=== PATIENT | female | born 1965 | race Caucasian/White ===

== ENCOUNTER 2025-04-23 17:44 | Emergency (ER) | payer BC ==
[~2025-04-23] VITALS: Ht 167.6 cm; Wt 90.9 kg
[2025-04-23 18:02] VITALS: TEMP 99.9
--- NOTE | 2025-04-23 18:07 | Physician Documentation ---
History of Present Illness Chief Complaint: Abdominal Pain w/vomiting Stated Complaint: DEHYDRATION Primary Medical Doctor: Sav Prieto [facility] This is a 60-year-old female that reports to the emergency department for evaluation of nausea vomiting fevers chills x5 days. Patient reports that she was seen at her primary care provider's office they were going to establish an IV and rehydrate her but they were unable to establish IV. Her right ear recommended that she come to the emergency department for IV fluids and hydration. Patient denies chest pain other than does report some what feels like reports for the last couple of days. History as above. Patient denies any sick contacts. No diarrhea. She does state she feels like she is having heartburn. Medication Reconciliation Allergies: Coded Allergies: No Known Allergies (Unverified , 06/06/14) Past Medical History Past Medical History: No Pertinent History Past Surgical History: orthopedic surgeries, tubal ligation Other Past Surgical History: Uterine Ablation Lives with: Family Lives In: Home Review of Systems ROS All review of systems negative except as per HPI Physical Exam Vital Signs: Temperature: 99.9, Heart Rate: 72, Respiratory Rate: 17, BP: 168/96, Pulse Oximetry: 97, Weight: 90.910 Oxygen Flow Rate: 0 Physical Exam General: Patient is awake, alert, oriented x4 in no acute distress Head: Normocephalic and atraumatic. Eyes: Conjunctival normal. EOMI. PERRL. ENT: Mucous membranes moist. Neck: Supple, trachea is midline. Chest: Clear to auscultation bilaterally without rales, rhonchi, or wheezes. There is no accessory muscle use or retractions. Cardiac: RRR without murmurs, gallops, or rubs. Abd: Soft, nondistended, nontender, with normoactive bowel sounds. No guarding, rebound, or rigidity. Progress Results/Orders Results/Orders Vital Signs 04/23/25 18:02 Temp 99.9 Pulse 72 Resp 17 B/P (MAP) 168/96 Pulse Ox 97 O2 Flow Rate 0 Medical Decision Making Findings Patient presents to the emergency room with nausea and vomiting. Differentials include but are not limited to dehydration, viral syndrome, acute kidney injury, small-bowel obstruction, electrolyte disturbances therefore emergent labs ordered which were reassuring. Patient was responding to therapy and he had not feel she requires emergent CT scan as I believe the risk of radiation at this juncture outweighs any benefit. She is now tolerating p.o.. Slight elevation of patient's liver enzymes noted however she has a negative Forrest's and he had not feel she requires emergent ultrasound. Departure Disposition: HOME / SELF CARE / HOMELESS Impression: Primary Impression: Acute gastritis Condition: Improved Discharge Instructions: Gastritis, Adult Referrals: NO PRIMARY CARE PROVIDER (PCP) Prescriptions Ondansetron 8mg ODT (Ondansetron Odt) 8 Mg Tab.rapdis 1 TAB PO Q6H for nausea/vomiting for 3 Days, #12 TAB 0 Refills Prov: GERRY RANDALL MD 04/23/25 Education Educated: Patient Educated regarding: diagnosis, treatment, need for follow up Signature Scribe Signature: No scribe Attestation: The note accurately reflects work and decisions made by me.Gerry Randall MD 04/23/25 22:05 JADON MORTENSEN Apr 23, 2025 18:07 GERRY RANDALL MD Apr 23, 2025 19:33
[2025-04-23 18:47] LABS: MEAN PLATELET VOLUME 10.3 FL (7.4-10.4); RED CELL DISTRIBUTION WIDTH 13.0 % (11.5-14.5)
[2025-04-23 18:56] LABS: CREATININE 0.65 MG/DL (0.40-0.90); TOTAL CARBON DIOXIDE 25.6 MMOL/L (24-32); eCRCL 84 ML/MIN; eGFR > 90 ML/MIN
[2025-04-23] MEDS: normal saline 1000ml 1,000 ML IV ONE ×2 (19:26→19:56)
[2025-04-23] MEDS: famotidine/PF 10 mg/ml inj IV ONE (19:56)
[2025-04-23] MEDS: ondansetron/PF 4mg/2ml inj IV ONE ×2 (19:57→20:04)
[2025-04-23 21:28] VITALS: BP 175/83; PULSE 75; RESP 14; O2SAT 96
[2025-04-23 21:40] LABS: URINE HCG NEGATIVE (NEG)
[2025-04-23 21:57] LABS: LEUKOCYTE ESTERASE ,URINE NEGATIVE (Neg); NITRITES, URINE NEGATIVE (Neg); OCCULT BLOOD,URINE NEGATIVE (Neg)
[2025-04-23 21:58] LABS: UA COLLECTION TYPE VOIDED
[2025-04-23] MEDS ORDERED: ONDA-245 PO (22:05)
== END 2025-04-23 22:09 | disposition home or self-care (01) ==
LOC: ER 17:45
DX: K29.00 Acute gastritis without bleeding (principal); E86.0 Dehydration; Z98.51 Tubal ligation status
CPT/HCPCS: 36415; 80053; 81003; 81025; 83690; 84484; 85025; 96361; 96374; 96375; 99284; J2405; J2470; J3490; J7030

== ENCOUNTER 2025-04-27 12:56 | Emergency (ER) | payer BC, OTHER ==
[~2025-04-27] VITALS: Ht 167.6 cm; Wt 89.1 kg
[~2025-04-27 12:56] MED LIST: ONDA-245 PO
[2025-04-27 13:15] VITALS: TEMP 98.7
[2025-04-27] MEDS: normal saline 1000ml 1,000 ML IV ONE (14:55)
--- NOTE | 2025-04-27 15:05 | Physician Documentation ---
History of Present Illness ~ Chief Complaint: Rectal Bleeding Stated Complaint: SHINGLES Time Seen by MD: 14:19 Primary Medical Doctor: Sav Prieto Mode of Arrival: POV HPI Patient is a 60-year-old female that presents to the emergency department for evaluation of rectal bleeding x2 days. Patient reports that she has been ill since last Monday with nausea and vomiting. She was seen at her primary care provider's office on Monday diagnosed with shingles at that time provided with some oral Zofran for the nausea and vomiting. Pain increased patient decided to present to the emergency department Monday night was seen in the emergency department Monday night and discharged to home in stable condition. Reports that nausea stopped at that time since that time she has continued to have abdominal pain and generalized discomfort yesterday she developed rectal bleeding and blood in her stool. Reports that she has had several episodes of gelatinous blood in her underwear that she has had to wipe out and several episodes of just blood in the toilet without stool. Denies any new medications denies taking blood thinners denies any history of diverticulosis colitis Crohn's IBS or any other gastroenterological conditions at this time. Reports he only takes Synthroid for her hypothyroidism and has no other medical conditions. Medication Reconciliation Allergies: Coded Allergies: No Known Allergies (Unverified , 04/27/25) Scheduled Acyclovir* (Zovirax*), 1 TAB PO 5XD Cephalexin*Monohydrate* (Keflex*), 1 CAP PO QID Gabapentin (Gabapentin), 1 CAP PO Q8H Ondansetron 8mg ODT (Ondansetron Odt), 1 TAB PO Q6H Past Medical History Past Medical History: No Pertinent History Past Surgical History: orthopedic surgeries, tubal ligation Other Past Surgical History: Uterine Ablation Lives with: Family Lives In: Home Review of Systems ROS As stated above in the HPI, otherwise all systems are reviewed and negative. Physical Exam Vital Signs: Temperature: 98.7, Source: Temporal, Heart Rate: 84, Respiratory Rate: 16, BP: 170/85, Pulse Oximetry: 97, Weight: 89.100 Oxygen Flow Rate: 0 Physical Exam VITALS: Reviewed and as above. GENERAL: Alert, no apparent distress. HEENT: Normocephalic, atraumatic, PERRL, EOMI, dry mucosa, no erythema RESPIRATORY: Lungs clear, normal breath sounds, no respiratory distress. CHEST: No accessory muscle use, no retractions CV: Regular rate, rhythm, no edema, no murmur, No: JVD GI: Soft, patient was palpation to the lower left and right quadrants, bowels sounds present, no rebound, guarding, or rigidity BACK: No CVA tenderness, or swelling MUSCULOSKELETAL No deformities, no edema SKIN: Warm and dry, no rash NEURO: Oriented x4, No motor or sensory deficit PSYCH: Normal mood and affect, no agitation Progress Progress Note CBC CMP coags type and cross ordered. Hemoccult positive. Labs we will re-evaluate. Patient is currently hemodynamically stable. Results/Orders Results/Orders Orders - JADON MORTENSEN CREDIT PRODUCT ANALYST * Iv Access / Saline Lock * (04/27/25 14:40) Hemocult Set Up (04/27/25 ) Completed Orders - JADON MORTENSEN Cbc/Diff (04/27/25 14:21) CMP (04/27/25 14:21) Normal Saline 1000ml (0.9% Sodium Chlori (04/27/25 14:40) Pt Inr (04/27/25 14:50) PTT (04/27/25 14:50) Type And Screen (04/27/25 14:50) Occult Bld Stool (04/27/25 15:01) Ua W/Microscopic, Cult If Ind (04/27/25 17:10) Medications Received in ER Medications (Trade) Dose Ordered Sig/Maico Route PRN Reason Start Time Stop Time Status Last Admin Dose Admin Sodium Chloride 1,000 ml @ 1,000 mls/hr ONCE ONCE IV 04/27/25 14:40 04/27/25 15:39 DC 04/27/25 14:55 1,000 MLS/HR Vital Signs 04/27/25 04/27/25 04/27/25 13:15 13:43 15:10 Temp 98.7 Pulse 84 74 Resp 16 18 B/P (MAP) 170/85 176/94 (121) Pulse Ox 97 98 O2 Flow Rate 0 0 Laboratory Tests Test 04/27/25 14:52 04/27/25 15:01 04/27/25 17:10 White Blood Count 15.7 H Red Blood Count 5.51 Hemoglobin 17.2 H Hematocrit 49.0 H Mean Corpuscular Volume 88.9 Mean Corpuscular Hemoglobin 31.2 H Mean Corpuscular Hemoglobin Concent 35.1 Red Cell Distribution Width 12.8 Platelet Count 225 Mean Platelet Volume 10.3 Neutrophils (%) (Auto) 66.3 Lymphocytes (%) (Auto) 23.8 Monocytes (%) (Auto) 9.3 Eosinophils (%) (Auto) 0.1 Basophils (%) (Auto) 0.5 Neutrophils # (Auto) 10.4 H Lymphocytes # (Auto) 3.7 Monocytes # (Auto) 1.5 H Eosinophils # (Auto) 0.0 Basophils # (Auto) 0.1 CBC Comment Prothrombin Time 10.9 INR International Normalized Ratio 1.1 Activated Partial Thromboplast Time 23 Coagulation Comments Sodium Level 133 L Potassium Level 3.5 Chloride Level 95 L Carbon Dioxide Level 26.1 Anion Gap 12 Blood Urea Nitrogen 15 Creatinine 1.13 H Estimated GFR/1.73 m2 49 BUN/Creatinine Ratio 13.3 Glucose Level 108 H Calcium Level 9.4 Total Bilirubin 1.1 H Aspartate Amino Transf (AST/SGOT) 85 H Alanine Aminotransferase (ALT/SGPT) 149 H Alkaline Phosphatase 86 Total Protein 8.8 H Albumin 4.2 Globulin 4.6 H Albumin/Globulin Ratio 0.9 L Chemistry Comments Stool Occult Blood Positive H Urine Specimen Description Cln catch midstream Urine Color Yellow Urine Clarity Slightly cloudy Urine pH 5.5 Urine Specific Worth >=1.030 Urine Protein Negative Urine Glucose (UA) Negative Urine Ketones 15 H Urine Occult Blood Moderate H Urine Nitrite Negative Urine Bilirubin Negative Urine Urobilinogen 1.0 Urine Leukocyte Esterase Negative Urine RBC 0-2 Urine WBC 0-4 Urine Squamous Epithelial Cells Few Urine Amorphous Urates 1+ Urine Bacteria Few Urine Hyaline Casts 0-3 Urine Mucus Few Urine Culture Indicated Not ind Volume Urine Centrifuged 4 ml Urine Comment Low volume Medical Decision Making Findings This patient has a presentation consistent with rectal bleeding. Hemodynamically stable appropriate laboratory diagnostics at this time. Low suspicion for inflammatory bowel disorder, rectal ulcer (HIV, syphilis, STI) or rectal foreign body. Presentation not consistent with other acute, emergent causes of upper or lower GI bleeding. No evidence of hemorrhagic shock. Patient diagnosed with a UTI today. Prescribed keflex. The patient follow up with primary care provider. Patient will follow up with her primary care provider tomorrow. Recommended to patient that she speak with her primary care provider about additional diagnostics i.e. colonoscopy or other imaging diagnostics. Patient will be provided with strict return precautions. Diff Dx GI Bleed:Consideration: Include: AE fistula, Angiodysplasia, Bleeding diathesis, Blood loss anemia, Carcinoma, Diverticulosis, Diverticulitis, Esophageal varicies, Esophagitis, Gastritis, Gastroenteritis, Inflammatory BD, Apurva-Armijo syndrome, Meckel's diverticulum, PUD, Other Departure Disposition: HOME / SELF CARE / HOMELESS Impression: Primary Impression: Rectal bleeding Additional Impressions: Abdominal discomfort Shingles Herpetic lesions Condition: Stable Discharge Instructions: Rectal Bleeding, [id number], Shingles, [id number] Additional Instructions: This patient has a presentation consistent with rectal bleeding. Hemodynamically stable appropriate laboratory diagnostics at this time. Low suspicion for inflammatory bowel disorder, rectal ulcer (HIV, syphilis, STI) or rectal foreign body. Presentation not consistent with other acute, emergent causes of upper or lower GI bleeding. No evidence of hemorrhagic shock. He has also been diagnosed with a UTI today. You have been prescribed Keflex. Please take medication as directed. Please increase your fluids as tolerated. Follow up with your primary care provider. Return to the emergency department if any worsening or recurrent symptoms or any additional concerning symptoms i.e. flank pain fever chills increased dysuria or any other concerning symptoms that we discussed here today. Follow up with her primary care provider tomorrow. Please return to the emergency department if you have any worsening or recurrent symptoms or any additional concerning symptoms that we discussed here today i.e. increased bleeding lightheadedness shortness of breath increased abdominal pain or any other concerning symptoms that would that we discussed here today. Departure Forms: Excuse form Work or School Excused From: Work May Return but still avoid physical Activity from now until: May 01, 2025 Referrals: NO PRIMARY CARE PROVIDER (PCP) Prescriptions Cephalexin*Monohydrate* (Keflex*) 500 Mg Capsule 1 CAP PO QID for 7 Days, #28 CAP Prov: JADON MORTENSEN [employer]EDIT PRODUCT ANALYST 04/27/25 Gabapentin (Gabapentin) 100 Mg Capsule 1 CAP PO Q8H for 30 Days, #30 CAP 0 Refills Prov: JADON MORTENSEN [employer]EDIT PRODUCT ANALYST 25 Acyclovir* (Zovirax*) 800 Mg Tablet 1 TAB PO 5XD for 10 Days, #50 TAB Prov: JADON MORTENSEN 04/27/25 Education Educated: Patient Educated regarding: diagnosis, treatment, need for follow up Signature Scribe Signature: A Attestation: Scribed for Jadon Mortensen by THELMA Moy . 04/27/25 17:43 JADON MORTENSEN Apr 27, 2025 15:05
[2025-04-27 15:10] LABS: MEAN PLATELET VOLUME 10.3 FL (7.4-10.4); RED CELL DISTRIBUTION WIDTH 12.8 % (11.5-14.5)
[2025-04-27 15:23] LABS: OCCULT BLOOD STOOL POSITIVE (Neg)
[2025-04-27 15:23] LABS: APTT 23 SECONDS (22-32); INR 1.1 INR
[2025-04-27 15:24] LABS: CREATININE 1.13 MG/DL (0.40-0.90); TOTAL CARBON DIOXIDE 26.1 MMOL/L (24-32); eCRCL 48 ML/MIN; eGFR 49 ML/MIN
[2025-04-27 17:25] LABS: LEUKOCYTE ESTERASE ,URINE NEGATIVE (Neg); NITRITES, URINE NEGATIVE (Neg); OCCULT BLOOD,URINE MODERATE (Neg)
[2025-04-27 17:26] LABS: UA COLLECTION TYPE CLN CATCH MIDSTREAM
[2025-04-27 17:31] LABS: AMORPHOUS URATES 1+; HYALINE CASTS 0-3 /LPF (NEGATIVE); MUCUS STRANDS FEW /LPF (Neg); SQUAMOUS EPITHELIAL CELL,UR FEW /LPF (FEW)
[2025-04-27] MEDS ORDERED: ACYC-129 PO (17:37)
[2025-04-27] MEDS ORDERED: GABA-530 PO (17:37)
[2025-04-27] MEDS ORDERED: CEPH-585 PO (17:41)
[2025-04-27 18:10] VITALS: BP 137/65; PULSE 69; RESP 14; O2SAT 99
== END 2025-04-27 18:11 | disposition home or self-care (01) ==
LOC: ER 12:57
DX: K62.5 Hemorrhage of anus and rectum (principal); B02.9 Zoster without complications; E03.9 Hypothyroidism, unspecified; Z98.51 Tubal ligation status; Z79.899 Other long term (current) drug therapy
CPT/HCPCS: 36415; 80053; 81001; 82272; 85025; 85610; 85730; 86885; 86900; 86901; 96360; 99283; J7030